=== PATIENT | male | born 1965 | race Caucasian/White ===

== ENCOUNTER 2021-10-03 14:17 | Emergency (ER) | payer OTHER ==
[2021-10-03 15:36] LABS: HEMOGLOBIN 12.8 gm/dl (14.0-17.5); RED BLOOD COUNT 4.09 M/UL (4.20-5.50); WHITE BLOOD COUNT 5.1 K/UL (4.5-11.0)
[2021-10-03 15:59] LABS: BUN/CREATININE RATIO 34 (0-10)
== END 2021-10-04 14:15 | disposition home or self-care (01) ==
LOC: ER1 14:17
PROVIDERS: Emergency Medicine
DX: K59.00 Constipation, unspecified (principal); E11.9 Type 2 diabetes mellitus without complications; I10 Essential (primary) hypertension; Z20.822 Contact with and (suspected) exposure to COVID-19; E87.6 Hypokalemia; Z86.73 Personal history of transient ischemic attack (TIA), and cerebral infarction without residual deficits
CPT/HCPCS: 74018; 80053; 80307; 81001; 83690; 83735; 85025; 97161; 97165; 99283; G0480; U0002

== ENCOUNTER 2022-03-17 18:26 | Inpatient (IN) | payer OTHER ==
[~2022-03-17] VITALS: Ht 167.6 cm; Wt 55.6 kg
[2022-03-18 05:40] LABS: HEMOGLOBIN 11.7 gm/dl (14.0-17.5); RED BLOOD COUNT 3.92 M/UL (4.20-5.50); WHITE BLOOD COUNT 22.3 K/UL (4.5-11.0)
[2022-03-18 06:12] LABS: BUN/CREATININE RATIO 38 (0-10)
--- NOTE | 2022-03-18 13:53 | NUR ---
03/18/22 1353 PATIENT IV WAS NOTED TO BE LEAKING AND THE PATIENTS GOWN AND BEDING WAS WET. RN STATED THAT THE BEDDING AND GOWN WOULD BE CHANGED. PATIENT STATED" LEAVE ME ALONE AND GET ME ANOTHER BLANKET." PATIENT CONTINUED TO STATE" I DON'T WANT ANYONE IN MY DAMN ROOM." PATIENT REFUSES TO ALLOW NURSING TO START NEW IV FOR ORDERED IV FLUIDS. DR. NELSON WAS NOTIFED OF PATIENTS NONCOMPLIANCE WITH TELE MD STATED, "IF HE DOENS'T WANT TO WEAR IT THATS FINE JUST LEAVE THE PATIENT ALONE HE IS REQUESTING"
[2022-03-18] MEDS ORDERED: ATORVASTATIN CA10 MG PO (14:11)
[2022-03-18] MEDS ORDERED: OYSTER SHELL 51 EACH PO (14:12)
[2022-03-18] MEDS ORDERED: CLOPIDOGREL75 MG PO (14:13)
[2022-03-18] MEDS ORDERED: DICLOFENAC SODI50 MG PO (14:13)
[2022-03-18] MEDS ORDERED: HUMALOG100 UNIT/3 SC (14:14)
[2022-03-18] MEDS ORDERED: FAMOTIDINE40 MG PO (14:14)
[2022-03-18] MEDS ORDERED: TRAMADOL HCL50 MG PO (14:15)
--- NOTE | 2022-03-18 15:46 | NUR ---
RECEIVED PATIENT TO 5105 FROM TRUCK ASSEMBLER, PATIENT REFUSING TELE, VITALS, FINGERSTICK, COMPREHENSIVE ASSESSMENT. BASED ON WHAT I WAS ABLE TO BRIEFLY ASSESS, I AGREE WITH THE PREVIOUS CHARGE OUT CLERK. PATIENT DOES NOT HAVE IV AND IS REFUSING TO GET STUCK FOR ONE. REFUSING LABS WELL. TRUCK ASSEMBLER MADE MD AWARE OF PATIENT NON-COMPLIANCE. I ASKED PATIENT IF THERE WAS ANYTHING I COULD DO FOR HIM, AND HE SAID I 'COULD LEAVE HIM ALONE'. I TOOK THE PATIENT ICE WATER, CLOSED THE CURTAIN AND TURNED OFF THE LIGHTS PER PATIENT REQUEST, AND MADE SURE HIS CALL MEEKS IS IN REACH. WCTM.
--- NOTE | 2022-03-19 00:51 | NUR ---
PT IS HOLLERING PROFANITY LANGUAGE SOON I ENTER THE ROOM. PT STATING TO LEAVE HIM ALONE, STATING FOR ME TO SHUT UP ALONG WITH MORE PROFANITY LANGUAGE. PT WAS REQUESTING SOME ORANGES I TOLD HIM WE HAD ORANGE JUICE AND IN RETURN HE ALLOWED ME TO ADMINSTERED HIS HEPARIN AND DO A FINGERSTICK. PT WOULD NOT ALLOW INSULIN TO BE ADMINSTERED. PT PULLED THE BLANKET UP OVER HIS HEAD. WILL CONTINUE TO MONITOR PT. BED IS IN LOWEST POSITION AND TRYED EXPLANING THE CALL LIGHT AND THE PT HOLLERS HE DOESNT NEED THAT.
[2022-03-19 10:59] LABS: HEMOGLOBIN 12.1 gm/dl (14.0-17.5); RED BLOOD COUNT 4.09 M/UL (4.20-5.50); WHITE BLOOD COUNT 21.6 K/UL (4.5-11.0)
--- NOTE | 2022-03-19 19:59 | NUR ---
Attempted initial assessment x 2 without success. Patient states to leave him alone that he does not wish to be bothered. Patient asked if he had any needs at this time, denied needs.
--- NOTE | 2022-03-19 22:47 | NUR ---
Patient allowed staff to provide him with a snack. Patient allowed staff to reposition him in bed, however, refused to turn. Patient coccyx and skin assessed while placing a gown on resident. Patient continues to refuse vitals, medications. Patient is verbal toward staff stating "you can't do anything right", "leave me the hell alone".
--- NOTE | 2022-03-20 00:51 | NUR ---
Entered patient room, patient stated that he was "having trouble breathing". Attempted to assess patient, patient refused vitals and assessment. Patient stated "get me some air". Attempted again to assess patients respiratory status and vitals, patient stated "get out of my g*d da*n face you b*tch" "give me some air and leave". Oxygen at 2 L via nasal cannula applied to patient. House notified
--- NOTE | 2022-03-20 01:05 | NUR ---
Thuy Cardoza, Karoline Cordoba and myself assessed patient visually. Patient refuses vitals, physical assessment. Patient does not appear to have any s/s of respiratory distress. Patient is able to yell out, no noted use of accessory muscles, skin color pink, warm to touch.
--- NOTE | 2022-03-20 03:02 | NUR ---
Late Entry 0225 Patient complain of pain, notified patient that vitals signs are needed prior to administration of pain medication. Patient began cussing profanity and stating "just give me medicine". Stephanie SOLAR MAINTENANCE TECHNICIAN witness, requested patient allow vital signs to be obtained. Patient allowed staff to obtain vitals of 98.0 HR 107 RR 16 O2 saturation of 92% on RA and BP 148/89. Patient with PRN Ultram ordered, patient verbalized pain generalized. Patient administered PRN pain medication, patient began screaming profanity and calling staff names. House notified.
--- NOTE | 2022-03-20 06:06 | NUR ---
Patient resting in bed, no s/s of distress noted.
--- NOTE | 2022-03-20 14:30 | NUR ---
d/c gay catheter earlier to recheck if patient able to void. dr. meeks aware and stated if patient unable to void to insert gay back.
[2022-03-21 06:39] LABS: HEMOGLOBIN 11.4 gm/dl (14.0-17.5); RED BLOOD COUNT 3.84 M/UL (4.20-5.50); WHITE BLOOD COUNT 16.8 K/UL (4.5-11.0)
[2022-03-21] MEDS ORDERED: FLOMAX 0.4 MG0.4 MG PO (12:54)
[2022-03-21] MEDS ORDERED: rocephin (12:54)
[2022-03-22 04:07] LABS: RED BLOOD COUNT 3.64 M/UL (4.20-5.50)
[2022-03-25 06:17] LABS: HEMOGLOBIN 10.4 gm/dl (14.0-17.5); RED BLOOD COUNT 3.52 M/UL (4.20-5.50); WHITE BLOOD COUNT 14.6 K/UL (4.5-11.0)
[2022-03-26 10:08] LABS: HEMOGLOBIN 9.9 gm/dl (14.0-17.5); RED BLOOD COUNT 3.34 M/UL (4.20-5.50); WHITE BLOOD COUNT 11.1 K/UL (4.5-11.0)
[2022-03-27 06:12] LABS: RED BLOOD COUNT 3.4 M/UL (4.20-5.50); WHITE BLOOD COUNT 10.1 K/UL (4.5-11.0)
[2022-03-28 09:50] LABS: HEMOGLOBIN 9.8 gm/dl (14.0-17.5); RED BLOOD COUNT 3.29 M/UL (4.20-5.50); WHITE BLOOD COUNT 9.1 K/UL (4.5-11.0)
[2022-03-28] MEDS ORDERED: FINASTERIDE5 MG PO (10:58)
[2022-03-28] MEDS ORDERED: ASPIRIN EC81 MG PO (10:58)
[2022-03-28] MEDS ORDERED: LOPRESSOR 25 MG25 MG PO (10:58)
--- NOTE | 2022-03-28 11:12 | NUR ---
I CALLED [facility] AND SPOKE WITH FORTUNATO PATIENT REFUSED ASSESSMENT WITH [facility]EV[facility], DR SYLVESTER IS AWARE, IS MELISSA CHAUHAN.
--- NOTE | 2022-03-28 11:17 | NUR ---
ADDENDUM TO PREVIOUS NOTE, PATIENT ANSWERED SOME QUESTIONS FROM [facility] BUT REFUSED FULL ASSESSMENT.
== END 2022-03-29 02:30 | disposition short-term general hospital (02) | DRG 872 ==
LOC: M/S 03-18 00:44 → PROG CARE 03-18 00:44 → M/S 03-18 15:23
PROVIDERS: Internal Medicine; Internal Medicine Nephrology; Physician Assistant; ADMIT Internal Medicine
DX: A41.9 Sepsis, unspecified organism (principal); N17.9 Acute kidney failure, unspecified; E87.1 Hypo-osmolality and hyponatremia; R45.851 Suicidal ideations; N13.6 Pyonephrosis; Z20.822 Contact with and (suspected) exposure to COVID-19; R65.20 Severe sepsis without septic shock; I12.9 Hypertensive chronic kidney disease with stage 1 through stage 4 chronic kidney disease, or unspecified chronic kidney disease; E11.65 Type 2 diabetes mellitus with hyperglycemia; E11.22 Type 2 diabetes mellitus with diabetic chronic kidney disease; N40.1 Benign prostatic hyperplasia with lower urinary tract symptoms; R33.8 Other retention of urine; R45.1 Restlessness and agitation; N18.30 Chronic kidney disease, stage 3 unspecified; E78.5 Hyperlipidemia, unspecified; I16.0 Hypertensive urgency; Z91.14 Patient's other noncompliance with medication regimen; Z86.73 Personal history of transient ischemic attack (TIA), and cerebral infarction without residual deficits; Z98.890 Other specified postprocedural states; Z59.00 Homelessness unspecified; Z79.899 Other long term (current) drug therapy
CPT/HCPCS: 36415; 80048; 80053; 81001; 82550; 82553; 82570; 82962; 83036; 83735; 83880; 84100; 84156; 84484; 85025; 85027; 87040; 87086; 93005; J0696; J1644; J2185; J7030; P9047; U0002